=== PATIENT | male | born 1955 | race Caucasian/White ===

== ENCOUNTER 2022-01-27 13:38 | Inpatient (IN) ==
[2022-01-27] MEDS ORDERED: Ringers Solution, Lactated 1,000 ML IVC SCH (14:00)
[2022-01-27] MEDS ORDERED: cefOXitin 2,000 MG in Water for inj. (sterile) 10 ML IVP ONE (14:00)
[2022-01-27] MEDS ORDERED: Acetaminophen IV 1,000 MG/100 ML BAG IVPB ONE (14:46)
[2022-01-27] MEDS ORDERED: *HR* Labetalol 20 MG/4 ML SYRINGE IVP PRN (14:51)
[2022-01-27] MEDS ORDERED: Famotidine 20 MG/2 ML VIAL IVP ONE (14:51)
[2022-01-27] MEDS ORDERED: *HR* OxyCODONE Immed Rel 5 MG TABLET PO PRN (14:51)
[2022-01-27] MEDS ORDERED: Ketorolac 30 MG/ML VIAL IVP PRN (14:51)
[2022-01-27] MEDS ORDERED: CefOXitin 1,000 MG VIAL ONE (16:29)
[2022-01-27] MEDS ORDERED: Lidocaine -MPF 4% 5 ML AMPUL ONE (16:55)
[2022-01-27] MEDS ORDERED: Lidocaine -MPF 2% 5 ML VIAL ONE (16:57)
[2022-01-27] MEDS ORDERED: *HR* Propofol 200 MG/20 ML VIAL IVP ONE (16:57)
[2022-01-27] MEDS ORDERED: *HR* Rocuronium Bromide 50 MG/5 ML VIAL ONE ×2 (16:57→19:36)
[2022-01-27] MEDS ORDERED: *HR* FentaNYL (PF) 100 MCG/2 ML VIAL ONE ×2 (16:57→19:05)
[2022-01-27] MEDS ORDERED: *HR* Midazolam HCl 2 MG/2 ML VIAL ONE (16:57)
[2022-01-27] MEDS ORDERED: *HR* Succinylcholine 200 MG/10 ML VIAL IVP ONE (16:57)
[2022-01-27] MEDS ORDERED: Ondansetron 4 MG/2 ML VIAL ONE (16:57)
[2022-01-27] MEDS ORDERED: Oxymetazoline Nasal SPRAY BOTTLE 15ML NS ONE (19:02)
[2022-01-27] MEDS ORDERED: *HR* HYDROMORPHONE 2 MG/ML VIAL ONE (19:35)
[2022-01-27] MEDS ORDERED: Sugammadex Sodium 200 MG/2 ML VIAL IV ONE (19:37)
[2022-01-27] MEDS ORDERED: *HR* Labetalol 20 MG/4 ML SYRINGE IVP ONE (20:03)
[2022-01-27] MEDS: *HR* HYDROmorphone (PF) 1 MG/ML SYRINGE IVP PRN ×3 (22:39→23:09)
[2022-01-28] MEDS ORDERED: Naloxone 0.4 MG/ML INJ IVP PRN (00:07)
[2022-01-28] MEDS ORDERED: Ondansetron 4 MG/2 ML VIAL IVP PRN (00:07)
[2022-01-28] MEDS ORDERED: *HR* HYDROmorphone PCA *PREMADE* 20 MG/1MG/ML (20mL) PCA VIAL IVC PRN (00:07)
[2022-01-28] MEDS ORDERED: cefOXitin 1,000 MG in Water for inj. (sterile) 10 ML IVP SCH (00:07)
[2022-01-28] MEDS: 0.9 % Sodium Chloride 1,000 ML IVC SCH ×3 (00:50→16:27)
[2022-01-28] MEDS: Acetaminophen IV 1,000 MG/100 ML BAG IVPB SCH ×5 (00:57→23:08)
[2022-01-28] MEDS: Ketorolac 30 MG/ML VIAL IVP SCH ×2 (01:09→05:31)
[2022-01-28] MEDS: cefOXitin 1,000 MG in Water for inj. (sterile) 10 ML IVP SCH ×3 (02:48→19:20)
[2022-01-28 03:22] LABS: Basophils % 0.2 %; Hematocrit 37.8 % (37.5-50.1); Hemoglobin 12.8 g/dL (12.9-16.9); Immature Granulocytes % 0.2 % (0-4); Lymphocytes # 0.5 K/mcL (0.6-4.6); Lymphocytes % 3.1 %; Mean Corpuscular HGB Conc 33.9 g/dL (31.6-35.5); Mean Corpuscular Volume 97.4 fL (83.0-100.0); Mean Platelet Volume 9.8 fL (9.4-12.4); Monocytes # 1.3 K/mcL (0.0-1.3); Neutrophils # 14.3 K/mcL (1.6-8.9); Platelet Count 337 K/mcL (140-400); Red Blood Count 3.88 M/mcL (4.19-5.50); Red Cell Distribution Width 14.1 % (11.5-14.5); Segmented Neutrophils % 88.5 %; White Blood Count 16.2 K/mcL (4.3-11.1)
[2022-01-28 03:41] LABS: BUN/Creatinine Ratio 15 (6-26); Blood Urea Nitrogen 17 mg/dL (8-23); Calcium 8.6 mg/dL (8.6-10.3); Carbon Dioxide 27 mEq/L (23-29); Chloride 97 mEq/L (98-107); Glucose 340 mg/dL (70-105); Osmolality,Calculated 291 (280-300); Potassium 4.9 mEq/L (3.5-5.1); Sodium 133 mEq/L (136-145); eGFR For African Americans > 60 (> 60); eGFR For Non-African Americans > 60 (> 60)
[2022-01-28] MEDS ORDERED: *HR* Fondaparinux 2.5 MG/0.5 ML SYRINGE SQ SCH (06:00)
[2022-01-28] MEDS: Pantoprazole 40 MG VIAL IVP SCH (08:43)
[2022-01-28] MEDS ORDERED: Saliva Stimulant 44.3ml BOTTLE PO PRN (09:36)
[2022-01-28] MEDS ORDERED: Chloraseptic Spray 177 ML BOTTLE MM PRN (09:36)
[2022-01-28] MEDS ORDERED: *HR* Dextrose 50 % in Water (Syg) 50 ML SYRINGE IVP PRN (09:59)
[2022-01-28] MEDS ORDERED: Dextrose Gel 15 GM/37.5 ML TUBE PO PRN ×2 (09:59)
[2022-01-28] MEDS ORDERED: D5% in Water 1,000 ML IVC PRN (09:59)
[2022-01-28 11:59] LABS: Estimated Average Glucose 169 mg/dl; Hemoglobin A1C 7.5 %
[2022-01-28] MEDS ORDERED: Insulin LISPRO 300 UNITS/3 ML VIAL SUBQ SCH (12:00)
[2022-01-28] MEDS: Insulin LISPRO 300 UNITS/3 ML VIAL SUBQ SCH ×2 (12:21→17:46)
[2022-01-28] MEDS: *HR* Fondaparinux 2.5 MG/0.5 ML SYRINGE SQ SCH (15:54)
[2022-01-28] MEDS: Famotidine 20 MG/2 ML VIAL IVP SCH (17:28)
[2022-01-28] MEDS: traZODone 50 MG TABLET PO SCH (20:50)
[2022-01-29] MEDS: 0.9 % Sodium Chloride 1,000 ML IVC SCH ×4 (00:49→23:42)
[2022-01-29] MEDS: Insulin LISPRO 300 UNITS/3 ML VIAL SUBQ SCH ×5 (01:54→23:53)
[2022-01-29 02:19] LABS: Basophils % 0.1 %; Hematocrit 34.5 % (37.5-50.1); Hemoglobin 11.4 g/dL (12.9-16.9); Immature Granulocytes % 0.2 % (0-4); Lymphocytes # 1.7 K/mcL (0.6-4.6); Lymphocytes % 10.7 %; Mean Corpuscular Hemoglobin 32.5 pg (28.0-33.3); Mean Corpuscular Volume 98.3 fL (83.0-100.0); Mean Platelet Volume 9.7 fL (9.4-12.4); Monocytes # 1.5 K/mcL (0.0-1.3); Monocytes % 9.4 %; Neutrophils # 12.8 K/mcL (1.6-8.9); Platelet Count 293 K/mcL (140-400); Red Blood Count 3.51 M/mcL (4.19-5.50); Red Cell Distribution Width 13.7 % (11.5-14.5); Segmented Neutrophils % 79.6 %; White Blood Count 16.1 K/mcL (4.3-11.1)
[2022-01-29 02:37] LABS: BUN/Creatinine Ratio 25 (6-26); Blood Urea Nitrogen 23 mg/dL (8-23); Calcium 7.9 mg/dL (8.6-10.3); Carbon Dioxide 29 mEq/L (23-29); Chloride 98 mEq/L (98-107); Glucose 315 mg/dL (70-105); Osmolality,Calculated 290 (280-300); Phosphorous 3.3 mg/dL (2.7-4.5); Potassium 4.5 mEq/L (3.5-5.1); Sodium 132 mEq/L (136-145); eGFR For African Americans > 60 (> 60); eGFR For Non-African Americans > 60 (> 60)
[2022-01-29] MEDS: *HR* Fondaparinux 2.5 MG/0.5 ML SYRINGE SQ SCH (05:26)
[2022-01-29] MEDS: Acetaminophen IV 1,000 MG/100 ML BAG IVPB SCH ×4 (05:29→23:43)
[2022-01-29] MEDS: Famotidine 20 MG/2 ML VIAL IVP SCH ×2 (05:59→17:25)
[2022-01-29] MEDS ORDERED: *HR* Fondaparinux 2.5 MG/0.5 ML SYRINGE SQ SCH (06:00)
[2022-01-29] MEDS: Piperacillin/Tazobactam 3.375 GM in 0.9 % Sodium Chloride Mini Bag 100 ML IVPB SCH ×3 (08:16→23:42)
[2022-01-29] MEDS: Pantoprazole 40 MG VIAL IVP SCH (08:17)
[2022-01-29] MEDS ORDERED: hydroCHLOROthiazide 25 MG TABLET PO SCH (09:00)
[2022-01-29] MEDS: Insulin DETEMIR 100 UNIT/ML X5UNITS SUBQ SCH ×2 (12:19→21:07)
[2022-01-29] MEDS: Orphenadrine 60 MG/2 ML VIAL IVP PRN (12:28)
[2022-01-29] MEDS: traZODone 50 MG TABLET PO SCH (20:12)
[2022-01-30] MEDS: Orphenadrine 60 MG/2 ML VIAL IVP PRN (00:44)
[2022-01-30 05:12] LABS: Basophils % 0.3 %; Eosinophils # 0.1 K/mcL (0.0-0.6); Eosinophils % 0.7 %; Hematocrit 33.8 % (37.5-50.1); Hemoglobin 11.3 g/dL (12.9-16.9); Immature Granulocytes % 0.3 % (0-4); Lymphocytes % 23.2 %; Mean Corpuscular HGB Conc 33.4 g/dL (31.6-35.5); Mean Corpuscular Hemoglobin 32.9 pg (28.0-33.3); Mean Corpuscular Volume 98.5 fL (83.0-100.0); Mean Platelet Volume 10.1 fL (9.4-12.4); Monocytes # 1.6 K/mcL (0.0-1.3); Neutrophils # 8.3 K/mcL (1.6-8.9); Platelet Count 289 K/mcL (140-400); Red Blood Count 3.43 M/mcL (4.19-5.50); Segmented Neutrophils % 63.5 %; White Blood Count 13.1 K/mcL (4.3-11.1)
[2022-01-30 06:11] LABS: BUN/Creatinine Ratio 17 (6-26); Blood Urea Nitrogen 14 mg/dL (8-23); Calcium 7.9 mg/dL (8.6-10.3); Carbon Dioxide 27 mEq/L (23-29); Chloride 99 mEq/L (98-107); Glucose 162 mg/dL (70-105); Magnesium 1.9 mg/dL (1.6-2.6); Osmolality,Calculated 280 (280-300); Phosphorous 1.7 mg/dL (2.7-4.5); Sodium 133 mEq/L (136-145); eGFR For African Americans > 60 (> 60); eGFR For Non-African Americans > 60 (> 60)
[2022-01-30] MEDS: *HR* Fondaparinux 2.5 MG/0.5 ML SYRINGE SQ SCH (06:12)
[2022-01-30] MEDS: Acetaminophen IV 1,000 MG/100 ML BAG IVPB SCH ×3 (06:12→17:13)
[2022-01-30] MEDS: Insulin LISPRO 300 UNITS/3 ML VIAL SUBQ SCH ×3 (06:15→17:14)
[2022-01-30] MEDS ORDERED: Potassium Phosphate 44 MEQ in 0.9 % Sodium Chloride 250 ML IVPB ONE (06:55)
[2022-01-30] MEDS: Famotidine 20 MG/2 ML VIAL IVP SCH (06:58)
[2022-01-30] MEDS: 0.9 % Sodium Chloride 1,000 ML IVC SCH ×2 (07:53→16:21)
[2022-01-30] MEDS: Piperacillin/Tazobactam 3.375 GM in 0.9 % Sodium Chloride Mini Bag 100 ML IVPB SCH ×2 (07:53→16:20)
[2022-01-30] MEDS: Insulin DETEMIR 100 UNIT/ML X5UNITS SUBQ SCH ×2 (07:55→21:31)
[2022-01-30] MEDS: Pantoprazole 40 MG VIAL IVP SCH (07:56)
[2022-01-30] MEDS: Ondansetron 4 MG/2 ML VIAL IVP SCH ×4 (08:16→21:30)
[2022-01-30] MEDS ORDERED: *HR* LORazepam 2 MG/ML VIAL IVP ONE (08:27)
[2022-01-30] MEDS: Ipratropium/Albuterol Neb 3 ML IH SCH ×4 (09:03→20:40)
[2022-01-30] MEDS: Metoclopramide 20 MG in 0.9 % Sodium Chloride 50 ML IVPB SCH ×2 (10:12→16:37)
[2022-01-30] MEDS ORDERED: Ondansetron 4 MG/2 ML VIAL IVP SCH (12:00)
[2022-01-30] MEDS: Ketorolac 15 MG/ML VIAL IVP SCH ×2 (12:23→17:13)
[2022-01-30] MEDS: traZODone 50 MG TABLET PO SCH (21:30)
[2022-01-31] MEDS: Piperacillin/Tazobactam 3.375 GM in 0.9 % Sodium Chloride Mini Bag 100 ML IVPB SCH ×3 (00:20→16:58)
[2022-01-31] MEDS: Insulin LISPRO 300 UNITS/3 ML VIAL SUBQ SCH ×4 (00:20→17:17)
[2022-01-31] MEDS: Metoclopramide 20 MG in 0.9 % Sodium Chloride 50 ML IVPB SCH ×2 (00:20→08:58)
[2022-01-31] MEDS: Acetaminophen IV 1,000 MG/100 ML BAG IVPB SCH ×4 (00:20→16:59)
[2022-01-31] MEDS: Ondansetron 4 MG/2 ML VIAL IVP SCH ×3 (00:20→08:59)
[2022-01-31] MEDS: Ketorolac 15 MG/ML VIAL IVP SCH ×4 (00:20→16:59)
[2022-01-31] MEDS: 0.9 % Sodium Chloride 1,000 ML IVC SCH ×2 (01:06→09:01)
[2022-01-31] MEDS: *HR* Fondaparinux 2.5 MG/0.5 ML SYRINGE SQ SCH (05:34)
[2022-01-31 05:35] LABS: Basophils % 0.2 %; Eosinophils # 0.1 K/mcL (0.0-0.6); Eosinophils % 0.8 %; Hemoglobin 10.3 g/dL (12.9-16.9); Immature Granulocytes % 0.2 % (0-4); Lymphocytes # 2.3 K/mcL (0.6-4.6); Lymphocytes % 27.4 %; Mean Corpuscular HGB Conc 33.2 g/dL (31.6-35.5); Mean Corpuscular Hemoglobin 32.5 pg (28.0-33.3); Mean Corpuscular Volume 97.8 fL (83.0-100.0); Mean Platelet Volume 9.8 fL (9.4-12.4); Monocytes # 1.1 K/mcL (0.0-1.3); Monocytes % 12.6 %; Neutrophils # 4.9 K/mcL (1.6-8.9); Platelet Count 279 K/mcL (140-400); Red Blood Count 3.17 M/mcL (4.19-5.50); Red Cell Distribution Width 13.7 % (11.5-14.5); Segmented Neutrophils % 58.8 %; White Blood Count 8.4 K/mcL (4.3-11.1)
[2022-01-31 05:58] LABS: BUN/Creatinine Ratio 16 (6-26); Blood Urea Nitrogen 13 mg/dL (8-23); Calcium 7.6 mg/dL (8.6-10.3); Carbon Dioxide 26 mEq/L (23-29); Chloride 108 mEq/L (98-107); Glucose 112 mg/dL (70-105); Magnesium 1.9 mg/dL (1.6-2.6); Osmolality,Calculated 287 (280-300); Phosphorous 2.5 mg/dL (2.7-4.5); Potassium 3.6 mEq/L (3.5-5.1); Sodium 138 mEq/L (136-145); eGFR For African Americans > 60 (> 60); eGFR For Non-African Americans > 60 (> 60)
[2022-01-31] MEDS: Pantoprazole 40 MG VIAL IVP SCH (08:59)
[2022-01-31] MEDS: Insulin DETEMIR 100 UNIT/ML X5UNITS SUBQ SCH ×2 (08:59→20:54)
[2022-01-31] MEDS ORDERED: Potassium Phosphate 44 MEQ in 0.9 % Sodium Chloride 250 ML IVPB ONE (16:39)
[2022-01-31] MEDS: D5% in 0.45% NACL w KCl 20 MEQ/1,000 ML MLS IVC SCH (16:59)
[2022-01-31] MEDS: traZODone 50 MG TABLET PO SCH (20:54)
[2022-02-01] MEDS: Ketorolac 15 MG/ML VIAL IVP SCH ×4 (00:35→16:33)
[2022-02-01] MEDS: Piperacillin/Tazobactam 3.375 GM in 0.9 % Sodium Chloride Mini Bag 100 ML IVPB SCH ×3 (00:36→16:33)
[2022-02-01] MEDS: Insulin LISPRO 300 UNITS/3 ML VIAL SUBQ SCH ×4 (00:45→16:34)
[2022-02-01] MEDS: Acetaminophen IV 1,000 MG/100 ML BAG IVPB SCH ×4 (00:48→16:34)
[2022-02-01] MEDS: D5% in 0.45% NACL w KCl 20 MEQ/1,000 ML MLS IVC SCH ×2 (03:14→12:19)
[2022-02-01] MEDS: *HR* Fondaparinux 2.5 MG/0.5 ML SYRINGE SQ SCH (05:25)
[2022-02-01] MEDS: Pantoprazole 40 MG VIAL IVP SCH (07:50)
[2022-02-01] MEDS: Insulin DETEMIR 100 UNIT/ML X5UNITS SUBQ SCH ×2 (07:50→21:13)
[2022-02-01 15:01] LABS: Basophils % 0.3 %; Eosinophils # 0.1 K/mcL (0.0-0.6); Eosinophils % 1.1 %; Hematocrit 32.2 % (37.5-50.1); Hemoglobin 11.2 g/dL (12.9-16.9); Immature Granulocytes % 0.6 % (0-4); Lymphocytes # 2.4 K/mcL (0.6-4.6); Lymphocytes % 27.1 %; Mean Corpuscular HGB Conc 34.8 g/dL (31.6-35.5); Mean Corpuscular Hemoglobin 32.5 pg (28.0-33.3); Mean Corpuscular Volume 93.3 fL (83.0-100.0); Mean Platelet Volume 9.6 fL (9.4-12.4); Monocytes # 1.1 K/mcL (0.0-1.3); Monocytes % 12.6 %; Neutrophils # 5.3 K/mcL (1.6-8.9); Platelet Count 295 K/mcL (140-400); Red Blood Count 3.45 M/mcL (4.19-5.50); Segmented Neutrophils % 58.3 %
[2022-02-01 15:21] LABS: BUN/Creatinine Ratio 13 (6-26); Blood Urea Nitrogen 10 mg/dL (8-23); Calcium 8.1 mg/dL (8.6-10.3); Carbon Dioxide 24 mEq/L (23-29); Chloride 103 mEq/L (98-107); Glucose 177 mg/dL (70-105); Magnesium 1.9 mg/dL (1.6-2.6); Osmolality,Calculated 279 (280-300); Phosphorous 1.9 mg/dL (2.7-4.5); Potassium 3.7 mEq/L (3.5-5.1); Sodium 133 mEq/L (136-145); eGFR For African Americans > 60 (> 60); eGFR For Non-African Americans > 60 (> 60)
[2022-02-01] MEDS ORDERED: Ondansetron ODT 4 MG TAB.RAPDIS SL ONE (20:17)
[2022-02-01] MEDS: traZODone 50 MG TABLET PO SCH (21:07)
[2022-02-02] MEDS: Piperacillin/Tazobactam 3.375 GM in 0.9 % Sodium Chloride Mini Bag 100 ML IVPB SCH ×4 (00:24→23:30)
[2022-02-02] MEDS: Acetaminophen IV 1,000 MG/100 ML BAG IVPB SCH ×5 (00:31→23:35)
[2022-02-02] MEDS: D5% in 0.45% NACL w KCl 20 MEQ/1,000 ML MLS IVC SCH ×3 (00:33→21:37)
[2022-02-02] MEDS: Insulin LISPRO 300 UNITS/3 ML VIAL SUBQ SCH ×4 (00:33→18:53)
[2022-02-02] MEDS: Ketorolac 15 MG/ML VIAL IVP SCH ×5 (00:44→23:10)
[2022-02-02 05:45] LABS: Basophils % 0.1 %; Eosinophils % 0.4 %; Hematocrit 26.5 % (37.5-50.1); Immature Granulocytes % 0.3 % (0-4); Lymphocytes # 1.8 K/mcL (0.6-4.6); Lymphocytes % 18.5 %; Mean Corpuscular HGB Conc 33.6 g/dL (31.6-35.5); Mean Corpuscular Hemoglobin 32.1 pg (28.0-33.3); Mean Corpuscular Volume 95.7 fL (83.0-100.0); Mean Platelet Volume 10.3 fL (9.4-12.4); Monocytes # 1.1 K/mcL (0.0-1.3); Monocytes % 11.4 %; Neutrophils # 6.6 K/mcL (1.6-8.9); Platelet Count 263 K/mcL (140-400); Red Blood Count 2.77 M/mcL (4.19-5.50); Red Cell Distribution Width 13.1 % (11.5-14.5); Segmented Neutrophils % 69.3 %; White Blood Count 9.5 K/mcL (4.3-11.1)
[2022-02-02 05:50] LABS: Hemoglobin 8.9 g/dL (12.9-16.9)
[2022-02-02 06:16] LABS: BUN/Creatinine Ratio 17 (6-26); Blood Urea Nitrogen 14 mg/dL (8-23); Calcium 7.6 mg/dL (8.6-10.3); Carbon Dioxide 22 mEq/L (23-29); Chloride 103 mEq/L (98-107); Glucose 270 mg/dL (70-105); Magnesium 1.8 mg/dL (1.6-2.6); Osmolality,Calculated 286 (280-300); Phosphorous 2.9 mg/dL (2.7-4.5); Sodium 133 mEq/L (136-145); eGFR For African Americans > 60 (> 60); eGFR For Non-African Americans > 60 (> 60)
[2022-02-02] MEDS: *HR* Fondaparinux 2.5 MG/0.5 ML SYRINGE SQ SCH (06:27)
[2022-02-02 09:29] LABS: Hematocrit 26.1 % (37.5-50.1); Hemoglobin 8.9 g/dL (12.9-16.9)
[2022-02-02] MEDS: Insulin DETEMIR 100 UNIT/ML X5UNITS SUBQ SCH ×2 (09:58→20:51)
[2022-02-02] MEDS: Pantoprazole 40 MG VIAL IVP SCH (09:58)
[2022-02-02] MEDS ORDERED: Simethicone 80 MG TAB.CHEW PO PRN (12:38)
[2022-02-02] MEDS: Metoclopramide 20 MG in 0.9 % Sodium Chloride 50 ML IVPB SCH (18:14)
[2022-02-02] MEDS ORDERED: Ondansetron 4 MG/2 ML VIAL IVP ONE (21:43)
[2022-02-02] MEDS ORDERED: *HR* LORazepam 2 MG/ML VIAL IVP ONE (22:41)
[2022-02-02] MEDS: Baclofen 10 MG TABLET PO SCH (23:35)
[2022-02-03] MEDS: Metoclopramide 20 MG in 0.9 % Sodium Chloride 50 ML IVPB SCH ×3 (00:16→17:45)
[2022-02-03] MEDS: Insulin LISPRO 300 UNITS/3 ML VIAL SUBQ SCH ×5 (00:19→23:24)
[2022-02-03] MEDS: Acetaminophen IV 1,000 MG/100 ML BAG IVPB SCH ×4 (05:53→23:22)
[2022-02-03] MEDS: *HR* Fondaparinux 2.5 MG/0.5 ML SYRINGE SQ SCH (05:54)
[2022-02-03 06:35] LABS: Basophils % 0.3 %; Eosinophils # 0.1 K/mcL (0.0-0.6); Hematocrit 23.9 % (37.5-50.1); Immature Granulocytes % 0.3 % (0-4); Lymphocytes # 3.2 K/mcL (0.6-4.6); Lymphocytes % 35.7 %; Mean Corpuscular HGB Conc 33.5 g/dL (31.6-35.5); Mean Corpuscular Hemoglobin 32.3 pg (28.0-33.3); Mean Corpuscular Volume 96.4 fL (83.0-100.0); Mean Platelet Volume 10.2 fL (9.4-12.4); Monocytes # 1.4 K/mcL (0.0-1.3); Monocytes % 15.3 %; Neutrophils # 4.3 K/mcL (1.6-8.9); Platelet Count 254 K/mcL (140-400); Red Blood Count 2.48 M/mcL (4.19-5.50); Red Cell Distribution Width 13.8 % (11.5-14.5); Segmented Neutrophils % 47.4 %; White Blood Count 9.1 K/mcL (4.3-11.1)
[2022-02-03 06:52] LABS: BUN/Creatinine Ratio 15 (6-26); Blood Urea Nitrogen 13 mg/dL (8-23); Calcium 7.6 mg/dL (8.6-10.3); Carbon Dioxide 26 mEq/L (23-29); Chloride 105 mEq/L (98-107); Glucose 207 mg/dL (70-105); Osmolality,Calculated 288 (280-300); Phosphorous 2.7 mg/dL (2.7-4.5); Potassium 4.1 mEq/L (3.5-5.1); Sodium 136 mEq/L (136-145); eGFR For African Americans > 60 (> 60); eGFR For Non-African Americans > 60 (> 60)
[2022-02-03] MEDS: Ketorolac 15 MG/ML VIAL IVP SCH ×2 (08:32→13:01)
[2022-02-03] MEDS: Piperacillin/Tazobactam 3.375 GM in 0.9 % Sodium Chloride Mini Bag 100 ML IVPB SCH ×3 (08:36→23:22)
[2022-02-03] MEDS: Pantoprazole 40 MG VIAL IVP SCH (08:36)
[2022-02-03] MEDS: Baclofen 10 MG TABLET PO SCH ×3 (08:37→23:24)
[2022-02-03] MEDS: Insulin DETEMIR 100 UNIT/ML X5UNITS SUBQ SCH ×2 (08:40→21:43)
[2022-02-03] MEDS: D5% in 0.45% NACL w KCl 20 MEQ/1,000 ML MLS IVC SCH ×2 (08:43→18:41)
[2022-02-04] MEDS: D5% in 0.45% NACL w KCl 20 MEQ/1,000 ML MLS IVC SCH (04:19)
[2022-02-04] MEDS: Insulin LISPRO 300 UNITS/3 ML VIAL SUBQ SCH ×2 (05:20→12:35)
[2022-02-04] MEDS: Acetaminophen IV 1,000 MG/100 ML BAG IVPB SCH (05:20)
[2022-02-04 07:01] LABS: Basophils % 0.3 %; Eosinophils # 0.1 K/mcL (0.0-0.6); Eosinophils % 1.5 %; Hematocrit 26.9 % (37.5-50.1); Hemoglobin 9.3 g/dL (12.9-16.9); Immature Granulocytes % 0.3 % (0-4); Lymphocytes # 3.2 K/mcL (0.6-4.6); Lymphocytes % 36.4 %; Mean Corpuscular HGB Conc 34.6 g/dL (31.6-35.5); Mean Corpuscular Hemoglobin 33.2 pg (28.0-33.3); Mean Corpuscular Volume 96.1 fL (83.0-100.0); Mean Platelet Volume 10.1 fL (9.4-12.4); Monocytes # 1.2 K/mcL (0.0-1.3); Monocytes % 13.5 %; Neutrophils # 4.2 K/mcL (1.6-8.9); Platelet Count 325 K/mcL (140-400); Red Cell Distribution Width 14.2 % (11.5-14.5); White Blood Count 8.7 K/mcL (4.3-11.1)
[2022-02-04 07:52] VITALS: O2SAT 97
[2022-02-04 07:53] LABS: % Iron Saturation 16 % (20-55); Iron 36 mcg/dL (65-175); Transferrin 164 mg/dL (203-362)
[2022-02-04] MEDS: Pantoprazole 40 MG VIAL IVP SCH (08:17)
[2022-02-04] MEDS: Insulin DETEMIR 100 UNIT/ML X5UNITS SUBQ SCH (08:17)
[2022-02-04] MEDS: Baclofen 10 MG TABLET PO SCH (08:17)
[2022-02-04] MEDS: Piperacillin/Tazobactam 3.375 GM in 0.9 % Sodium Chloride Mini Bag 100 ML IVPB SCH (08:18)
[2022-02-04] MEDS ORDERED: Gabapentin 400 MG CAPSULE PO SCH (09:00)
[2022-02-04] MEDS ORDERED: DilTIAZem CD (24hr) 300 MG CAP.ER.24H PO SCH (09:00)
[2022-02-04] MEDS ORDERED: Ibuprofen 800 MG TABLET PO PRN (10:34)
[2022-02-04] MEDS ORDERED: *HR* OxyCODONE Immed Rel 5 MG TABLET PO PRN (10:34)
[2022-02-04 10:43] LABS: Folate 19.6 ng/mL (3.0-16.0)
[2022-02-04] MEDS ORDERED: Iron Sucrose Complex 400 MG in 0.9 % Sodium Chloride 250 ML IVPB ONE (11:03)
[2022-02-04] MEDS ORDERED: polyethylene glycoL 3350 17 GM POWD.PACK PO SCH (11:15)
[2022-02-04 11:29] VITALS: PULSE 70; TEMP 97.8
[2022-02-04 11:30] VITALS: BP 152/73
== END 2022-02-04 13:50 | disposition home or self-care (01) | DRG 327 ==
LOC: SAMDAY 13:38 → SUATTDRO 15:49 → 3ANU 01-28 00:03
PROVIDERS: ADMIT Surgery; ATTEND Internal Medicine

== ENCOUNTER 2022-02-10 13:05 | Inpatient (IN) ==
[2022-02-10] MEDS ORDERED: 0.9 % Sodium Chloride 1,000 ML IVC ONE (13:23)
[2022-02-10] MEDS ORDERED: Isovue-370 500 ML BOTTLE IVP ONE (13:24)
[2022-02-10] MEDS ORDERED: Pantoprazole 80 MG in 0.9 % Sodium Chloride 50 ML IVPB ONE (13:32)
[2022-02-10] MEDS: Pantoprazole 40 MG in 0.9 % Sodium Chloride Mini Bag 100 ML IVC SCH ×3 (14:02→23:38)
[2022-02-10 14:12] LABS: Basophils % 0.1 %; Eosinophils % 0.1 %; Hematocrit 32.8 % (37.5-50.1); Hemoglobin 10.8 g/dL (12.9-16.9); Immature Granulocytes % 0.2 % (0-4); Lymphocytes % 8.1 %; Mean Corpuscular HGB Conc 32.9 g/dL (31.6-35.5); Mean Corpuscular Hemoglobin 32.3 pg (28.0-33.3); Mean Corpuscular Volume 98.2 fL (83.0-100.0); Mean Platelet Volume 9.7 fL (9.4-12.4); Monocytes # 1.5 K/mcL (0.0-1.3); Monocytes % 11.9 %; Neutrophils # 10.1 K/mcL (1.6-8.9); Platelet Count 615 K/mcL (140-400); Red Blood Count 3.34 M/mcL (4.19-5.50); Red Cell Distribution Width 14.4 % (11.5-14.5); Segmented Neutrophils % 79.6 %; White Blood Count 12.7 K/mcL (4.3-11.1)
[2022-02-10 14:22] LABS: INR 1.4; Prothrombin Time 15.4 Seconds (9.4-12.1)
[2022-02-10 14:24] LABS: Activated Partial Thrombo Time 28.4 Seconds (26.0-36.0)
[2022-02-10 14:29] LABS: Alanine Aminotransferase 18 Units/L (7-52); Albumin 3.8 g/dL (3.5-5.7); Alkaline Phosphatase 74 Units/L (34-104); Aspartate Amino Transferase 17 Units/L (13-39); BUN/Creatinine Ratio 16 (6-26); Bilirubin,Total 0.8 mg/dL (0.3-1.0); Blood Urea Nitrogen 35 mg/dL (8-23); Calcium 9.3 mg/dL (8.6-10.3); Carbon Dioxide 23 mEq/L (23-29); Chloride 98 mEq/L (98-107); Globulin 3.9 g/dL (2.4-3.5); Glucose 140 mg/dL (70-105); Lipase 3 Units/L (11-82); Magnesium 2.5 mg/dL (1.6-2.6); Osmolality,Calculated 286 (280-300); Potassium 3.1 mEq/L (3.5-5.1); Sodium 133 mEq/L (136-145); Total Protein 7.7 g/dL (6.4-8.9); Troponin I < 0.03 ng/mL (< 0.04); eGFR For African Americans 36 (> 60); eGFR For Non-African Americans 30 (> 60)
[2022-02-10] MEDS ORDERED: Naloxone 0.4 MG/ML INJ IVP PRN (15:57)
[2022-02-10] MEDS ORDERED: D5% in Water 1,000 ML IVC PRN (16:00)
[2022-02-10] MEDS ORDERED: *HR* Dextrose 50 % in Water (Syg) 50 ML SYRINGE IVP PRN (16:00)
[2022-02-10] MEDS ORDERED: Dextrose 4 GM Chewable Tablets PO PRN ×2 (16:00)
[2022-02-10] MEDS ORDERED: Ringers Solution, Lactated 1,000 ML IVC SCH (16:00)
[2022-02-10] MEDS ORDERED: *HR* HYDROmorphone 2 MG/ML SYRINGE IVP ONE (16:44)
[2022-02-10] MEDS: Ringers Solution, Lactated 1,000 ML IVC SCH ×2 (18:47→23:41)
[2022-02-10] MEDS: Insulin LISPRO 300 UNITS/3 ML VIAL SUBQ SCH (19:46)
[2022-02-10] MEDS ORDERED: Pantoprazole 40 MG VIAL ONE (19:53)
[2022-02-10 19:58] LABS: Hematocrit 27.6 % (37.5-50.1)
[2022-02-10 20:03] LABS: Hemoglobin 9.2 g/dL (12.9-16.9)
[2022-02-11] MEDS: Insulin LISPRO 300 UNITS/3 ML VIAL SUBQ SCH ×3 (00:46→20:23)
[2022-02-11] MEDS: Pantoprazole 40 MG in 0.9 % Sodium Chloride Mini Bag 100 ML IVC SCH ×2 (04:51→10:15)
[2022-02-11 06:11] LABS: BUN/Creatinine Ratio 23 (6-26); Blood Urea Nitrogen 30 mg/dL (8-23); Calcium 8.5 mg/dL (8.6-10.3); Carbon Dioxide 22 mEq/L (23-29); Chloride 100 mEq/L (98-107); Glucose 220 mg/dL (70-105); Magnesium 2.3 mg/dL (1.6-2.6); Osmolality,Calculated 289 (280-300); Phosphorous 3.9 mg/dL (2.7-4.5); Potassium 3.8 mEq/L (3.5-5.1); Sodium 133 mEq/L (136-145); eGFR For African Americans > 60 (> 60); eGFR For Non-African Americans 54 (> 60)
[2022-02-11 09:23] LABS: Basophils % 0.4 %; Eosinophils % 0.3 %; Hematocrit 29.4 % (37.5-50.1); Hemoglobin 9.8 g/dL (12.9-16.9); Immature Granulocytes % 0.3 % (0-4); Lymphocytes % 19.6 %; Mean Corpuscular HGB Conc 33.3 g/dL (31.6-35.5); Mean Corpuscular Hemoglobin 31.4 pg (28.0-33.3); Mean Corpuscular Volume 94.2 fL (83.0-100.0); Mean Platelet Volume 9.2 fL (9.4-12.4); Monocytes # 1.2 K/mcL (0.0-1.3); Monocytes % 12.1 %; Neutrophils # 6.8 K/mcL (1.6-8.9); Platelet Count 660 K/mcL (140-400); Red Blood Count 3.12 M/mcL (4.19-5.50); Red Cell Distribution Width 14.3 % (11.5-14.5); Segmented Neutrophils % 67.3 %; White Blood Count 10.2 K/mcL (4.3-11.1)
[2022-02-11] MEDS ORDERED: Prochlorperazine 10 MG/2 ML VIAL IVP PRN (10:13)
[2022-02-11] MEDS ORDERED: Scopolamine Patch 1.5 MG PATCH.TD72 TD ONE (10:13)
[2022-02-11] MEDS ORDERED: Chloraseptic Spray 177 ML BOTTLE MM PRN (10:14)
[2022-02-11] MEDS ORDERED: Menthol 1 EACH LOZENGE PO PRN (10:56)
[2022-02-11] MEDS ORDERED: Lidocaine 4% CREAM (LMX) 5 GM TP PRN (10:56)
[2022-02-11] MEDS: Saliva Stimulant 44.3ml BOTTLE PO PRN (12:09)
[2022-02-11] MEDS: Ondansetron 4 MG/2 ML VIAL IVP PRN (16:14)
[2022-02-11] MEDS ORDERED: Metoclopramide 10 MG/2 ML VIAL IVP PRN (19:27)
[2022-02-11] MEDS: Ringers Solution, Lactated 2,000 ML IVC SCH (20:24)
[2022-02-12] MEDS: Insulin LISPRO 300 UNITS/3 ML VIAL SUBQ SCH ×5 (01:04→17:59)
[2022-02-12 05:45] LABS: Basophils % 0.4 %; Eosinophils % 0.3 %; Hematocrit 30.2 % (37.5-50.1); Hemoglobin 10.3 g/dL (12.9-16.9); Immature Granulocytes % 0.4 % (0-4); Lymphocytes # 1.9 K/mcL (0.6-4.6); Lymphocytes % 26.4 %; Mean Corpuscular HGB Conc 34.1 g/dL (31.6-35.5); Mean Corpuscular Hemoglobin 32.3 pg (28.0-33.3); Mean Corpuscular Volume 94.7 fL (83.0-100.0); Mean Platelet Volume 9.2 fL (9.4-12.4); Monocytes # 1.5 K/mcL (0.0-1.3); Monocytes % 20.7 %; Neutrophils # 3.7 K/mcL (1.6-8.9); Platelet Count 694 K/mcL (140-400); Red Blood Count 3.19 M/mcL (4.19-5.50); Red Cell Distribution Width 14.3 % (11.5-14.5); Segmented Neutrophils % 51.8 %; White Blood Count 7.1 K/mcL (4.3-11.1)
[2022-02-12 06:04] LABS: Platelet Estimate Marked Increase (Normal); Poikilocytosis 1+ (Not Present); Target Cells 1+ (Not Present)
[2022-02-12 06:05] LABS: BUN/Creatinine Ratio 21 (6-26); Blood Urea Nitrogen 19 mg/dL (8-23); Calcium 8.5 mg/dL (8.6-10.3); Carbon Dioxide 30 mEq/L (23-29); Chloride 101 mEq/L (98-107); Glucose 186 mg/dL (70-105); Magnesium 2.2 mg/dL (1.6-2.6); Osmolality,Calculated 295 (280-300); Phosphorous 2.1 mg/dL (2.7-4.5); Potassium 3.3 mEq/L (3.5-5.1); Sodium 139 mEq/L (136-145); eGFR For African Americans > 60 (> 60); eGFR For Non-African Americans > 60 (> 60)
[2022-02-12] MEDS ORDERED: Potassium Phosphate 44 MEQ in 0.9 % Sodium Chloride 250 ML IVPB ONE (07:48)
[2022-02-12] MEDS: Pantoprazole 40 MG VIAL IVP SCH (08:26)
[2022-02-12] MEDS: Ringers Solution, Lactated 2,000 ML IVC SCH (15:01)
[2022-02-12] MEDS: Ondansetron 4 MG/2 ML VIAL IVP PRN (22:43)
[2022-02-13] MEDS: Insulin LISPRO 300 UNITS/3 ML VIAL SUBQ SCH ×3 (00:36→12:44)
[2022-02-13 02:34] LABS: Hematocrit 29.5 % (37.5-50.1)
[2022-02-13 02:55] LABS: BUN/Creatinine Ratio 20 (6-26); Blood Urea Nitrogen 16 mg/dL (8-23); Calcium 8.5 mg/dL (8.6-10.3); Carbon Dioxide 29 mEq/L (23-29); Chloride 100 mEq/L (98-107); Glucose 267 mg/dL (70-105); Magnesium 2.2 mg/dL (1.6-2.6); Osmolality,Calculated 293 (280-300); Phosphorous 2.1 mg/dL (2.7-4.5); Potassium 3.5 mEq/L (3.5-5.1); Sodium 136 mEq/L (136-145); eGFR For African Americans > 60 (> 60); eGFR For Non-African Americans > 60 (> 60)
[2022-02-13] MEDS: Ondansetron 4 MG/2 ML VIAL IVP PRN (07:13)
[2022-02-13] MEDS ORDERED: Isovue-370 500 ML BOTTLE IVP ONE (08:20)
[2022-02-13] MEDS: Saliva Stimulant 44.3ml BOTTLE PO PRN (08:41)
[2022-02-13] MEDS: Pantoprazole 40 MG VIAL IVP SCH (08:41)
[2022-02-13 09:13] LABS: Basophils % 0.4 %; Eosinophils % 0.4 %; Hematocrit 28.3 % (37.5-50.1); Hemoglobin 9.7 g/dL (12.9-16.9); Immature Granulocytes % 0.3 % (0-4); Lymphocytes # 1.2 K/mcL (0.6-4.6); Lymphocytes % 13.3 %; Mean Corpuscular HGB Conc 34.3 g/dL (31.6-35.5); Mean Corpuscular Hemoglobin 31.7 pg (28.0-33.3); Mean Corpuscular Volume 92.5 fL (83.0-100.0); Mean Platelet Volume 9.1 fL (9.4-12.4); Monocytes # 1.3 K/mcL (0.0-1.3); Monocytes % 14.8 %; Neutrophils # 6.4 K/mcL (1.6-8.9); Platelet Count 624 K/mcL (140-400); Red Blood Count 3.06 M/mcL (4.19-5.50); Red Cell Distribution Width 13.8 % (11.5-14.5); Segmented Neutrophils % 70.8 %; White Blood Count 9.1 K/mcL (4.3-11.1)
[2022-02-13] MEDS ORDERED: Ringers Solution, Lactated 1,000 ML IVC SCH (11:30)
[2022-02-13] MEDS ORDERED: Fluconazole 400 MG/200 ML 400 MG/200 ML BAG IVPB ONE (11:41)
[2022-02-13 14:21] LABS: Alanine Aminotransferase 15 Units/L (7-52); Albumin 2.9 g/dL (3.5-5.7); Albumin/Globulin Ratio 0.9 (1.1-2.2); Alkaline Phosphatase 58 Units/L (34-104); Aspartate Amino Transferase 14 Units/L (13-39); Bilirubin,Direct 0.2 mg/dL (0.0-0.2); Bilirubin,Indirect 0.5 mg/dL (0.0-1.0); Bilirubin,Total 0.7 mg/dL (0.3-1.0); Globulin 3.4 g/dL (2.4-3.5); Total Protein 6.3 g/dL (6.4-8.9)
[2022-02-13] MEDS ORDERED: *HR* Succinylcholine 200 MG/10 ML VIAL IVP ONE (15:16)
[2022-02-13] MEDS ORDERED: *HR* Midazolam HCl 2 MG/2 ML VIAL ONE (15:16)
[2022-02-13] MEDS ORDERED: Lidocaine -MPF 2% 5 ML VIAL ONE ×3 (15:16→17:30)
[2022-02-13] MEDS ORDERED: *HR* FentaNYL (PF) 100 MCG/2 ML VIAL ONE ×2 (15:16→17:21)
[2022-02-13] MEDS ORDERED: EPHEDrine 50 MG/ML VIAL ONE (15:16)
[2022-02-13] MEDS ORDERED: *HR* Phenylephrine 10 MG/ML VIAL ONE (15:16)
[2022-02-13] MEDS ORDERED: *HR* Propofol 200 MG/20 ML VIAL IVP ONE (15:16)
[2022-02-13] MEDS ORDERED: *HR* Rocuronium Bromide 50 MG/5 ML VIAL ONE ×2 (15:16→18:02)
[2022-02-13] MEDS ORDERED: Lidocaine HCL 4 ML Topical Solution (Laryng-O-Jet Kit Sterile Pak) TP ONE (15:17)
[2022-02-13] MEDS: Piperacillin/Tazobactam 3.375 GM in 0.9 % Sodium Chloride Mini Bag 100 ML IVPB SCH (15:20)
[2022-02-13] MEDS ORDERED: Albumin Human 5% 12.5 GM/250 ML IV.SOLN ONE (15:22)
[2022-02-13] MEDS ORDERED: *HR* Vasopressin 20 UNIT/ML VIAL ONE (15:23)
[2022-02-13] MEDS ORDERED: Heparin 1,000 UNITS/500 mL 500 ML ONE (15:33)
[2022-02-13] MEDS ORDERED: D10% in Water 500 ML IVC PRN (16:20)
[2022-02-13] MEDS ORDERED: *HR* FentaNYL (PF) 100 MCG/2 ML VIAL IVP PRN (16:33)
[2022-02-13] MEDS ORDERED: Albuterol 2.5 MG/3 ML NEBULIZER IH PRN (16:33)
[2022-02-13] MEDS ORDERED: Naloxone 0.4 MG/ML INJ IVP PRN ×2 (16:33→21:41)
[2022-02-13] MEDS ORDERED: Nitroglycerin 0.4 MG TAB.SUBL SL PRN ×2 (16:33→21:33)
[2022-02-13] MEDS ORDERED: Ipratropium Neb 0.5 MG NEBULIZER IH PRN (16:33)
[2022-02-13] MEDS ORDERED: Clinimix E 5%-20% SOLUTION 2,000 ML, Amino Acids 10% 0 ML with MVI, adult with vitami... IVC SCH (17:00)
[2022-02-13] MEDS ORDERED: Clinimix E 5%-15% SOLUTION 2,000 ML with MVI, adult with vitamin K 10 ML IVC SCH ×2 (17:00→21:33)
[2022-02-13] MEDS ORDERED: Ketamine HCL *QUVA* 50mg (1mL) SYRINGE ONE (17:32)
[2022-02-13] MEDS ORDERED: Ondansetron 4 MG/2 ML VIAL ONE (17:38)
[2022-02-13] MEDS ORDERED: *HR* HYDROMORPHONE 2 MG/ML VIAL ONE (19:35)
[2022-02-13] MEDS: *HR* FentaNYL (PF) 100 MCG/2 ML VIAL IVP PRN ×2 (20:02→20:12)
[2022-02-13] MEDS ORDERED: Acetaminophen IV 1,000 MG/100 ML BAG IVPB ONE ×2 (20:31→20:33)
[2022-02-13] MEDS ORDERED: Ketorolac 30 MG/ML VIAL IVP ONE (20:45)
[2022-02-13] MEDS ORDERED: *HR* HYDROmorphone PCA *PREMADE* 20 MG/1MG/ML (20mL) PCA VIAL IVC PRN (21:33)
[2022-02-13] MEDS ORDERED: Lidocaine 4% CREAM (LMX) 5 GM TP PRN (21:33)
[2022-02-13] MEDS ORDERED: D5% in Water 1,000 ML IVC PRN (21:33)
[2022-02-13] MEDS ORDERED: Dextrose 4 GM Chewable Tablets PO PRN ×2 (21:33)
[2022-02-13] MEDS ORDERED: Metoclopramide 10 MG/2 ML VIAL IVP PRN (21:33)
[2022-02-13] MEDS ORDERED: Menthol 1 EACH LOZENGE PO PRN (21:33)
[2022-02-13] MEDS ORDERED: Ondansetron 4 MG/2 ML VIAL IVP PRN (21:33)
[2022-02-13] MEDS: 0.9 % Sodium Chloride 1,000 ML IVC SCH (22:13)
[2022-02-14] MEDS: Piperacillin/Tazobactam 3.375 GM in 0.9 % Sodium Chloride Mini Bag 100 ML IVPB SCH ×4 (00:40→22:34)
[2022-02-14] MEDS: Insulin LISPRO 300 UNITS/3 ML VIAL SUBQ SCH ×5 (00:40→23:57)
[2022-02-14 08:06] LABS: Hematocrit 26.6 % (37.5-50.1); Mean Corpuscular HGB Conc 33.8 g/dL (31.6-35.5); Mean Corpuscular Hemoglobin 32.1 pg (28.0-33.3); Mean Platelet Volume 9.3 fL (9.4-12.4); Platelet Count 605 K/mcL (140-400); White Blood Count 12.9 K/mcL (4.3-11.1)
[2022-02-14 08:25] LABS: BUN/Creatinine Ratio 22 (6-26); Blood Urea Nitrogen 20 mg/dL (8-23); Calcium 7.9 mg/dL (8.6-10.3); Carbon Dioxide 27 mEq/L (23-29); Chloride 103 mEq/L (98-107); Glucose 266 mg/dL (70-105); Osmolality,Calculated 292 (280-300); Sodium 135 mEq/L (136-145); eGFR For African Americans > 60 (> 60); eGFR For Non-African Americans > 60 (> 60)
[2022-02-14 08:26] LABS: Phosphorous 3.6 mg/dL (2.7-4.5)
[2022-02-14 08:41] LABS: Lymphocytes # 0.5 K/mcL (0.6-4.6); Monocytes # 0.5 K/mcL (0.0-1.3); Neutrophils # 11.9 K/mcL (1.6-8.9)
[2022-02-14 08:42] LABS: Platelet Estimate Increased (Normal); Toxic Granulation Present (Not Present)
[2022-02-14 08:57] LABS: Triglycerides 86 mg/dL (< 150)
[2022-02-14] MEDS ORDERED: Fluconazole 200 MG/100 ML 200 MG/100 ML BAG IVPB SCH (09:00)
[2022-02-14] MEDS: Fluconazole 200 MG/100 ML 200 MG/100 ML BAG IVPB SCH (10:28)
[2022-02-14] MEDS: Pantoprazole 40 MG VIAL IVP SCH (10:36)
[2022-02-14] MEDS: 0.9 % Sodium Chloride 1,000 ML IVC SCH (10:50)
[2022-02-14] MEDS ORDERED: Clinimix E 5%-15% SOLUTION 2,000 ML IVC SCH (17:00)
[2022-02-14] MEDS: Chloraseptic Spray 177 ML BOTTLE MM PRN (17:33)
[2022-02-14] MEDS: Saliva Stimulant 44.3ml BOTTLE PO PRN (17:52)
[2022-02-14] MEDS: Insulin DETEMIR 100 UNIT/ML X5UNITS SUBQ SCH (20:16)
[2022-02-14] MEDS: Acetaminophen IV 1,000 MG/100 ML BAG IVPB PRN (22:51)
[2022-02-15] MEDS: 0.9 % Sodium Chloride 1,000 ML IVC SCH ×2 (01:20→18:20)
[2022-02-15] MEDS: Insulin LISPRO 300 UNITS/3 ML VIAL SUBQ SCH ×7 (04:37→23:08)
[2022-02-15 04:44] LABS: Basophils % 0.2 %; Hematocrit 25.6 % (37.5-50.1); Hemoglobin 8.4 g/dL (12.9-16.9); Lymphocytes # 1.8 K/mcL (0.6-4.6); Lymphocytes % 13.6 %; Mean Corpuscular HGB Conc 32.8 g/dL (31.6-35.5); Mean Corpuscular Hemoglobin 31.6 pg (28.0-33.3); Mean Corpuscular Volume 96.2 fL (83.0-100.0); Mean Platelet Volume 9.6 fL (9.4-12.4); Monocytes # 1.1 K/mcL (0.0-1.3); Neutrophils # 10.2 K/mcL (1.6-8.9); Nucleated Red Blood Cells 0.2 /100 WBC (0); Platelet Count 493 K/mcL (140-400); Red Blood Count 2.66 M/mcL (4.19-5.50); Red Cell Distribution Width 14.6 % (11.5-14.5); Segmented Neutrophils % 77.2 %; White Blood Count 13.2 K/mcL (4.3-11.1)
[2022-02-15 04:52] LABS: Alanine Aminotransferase 11 Units/L (7-52); Albumin 2.2 g/dL (3.5-5.7); Albumin/Globulin Ratio 0.8 (1.1-2.2); Alkaline Phosphatase 46 Units/L (34-104); Aspartate Amino Transferase 11 Units/L (13-39); BUN/Creatinine Ratio 20 (6-26); Bilirubin,Total 0.4 mg/dL (0.3-1.0); Blood Urea Nitrogen 16 mg/dL (8-23); Calcium 7.7 mg/dL (8.6-10.3); Carbon Dioxide 28 mEq/L (23-29); Chloride 105 mEq/L (98-107); Globulin 2.9 g/dL (2.4-3.5); Glucose 307 mg/dL (70-105); Magnesium 2.2 mg/dL (1.6-2.6); Osmolality,Calculated 295 (280-300); Phosphorous 1.9 mg/dL (2.7-4.5); Potassium 3.8 mEq/L (3.5-5.1); Sodium 136 mEq/L (136-145); Total Protein 5.1 g/dL (6.4-8.9); eGFR For African Americans > 60 (> 60); eGFR For Non-African Americans > 60 (> 60)
[2022-02-15] MEDS: Piperacillin/Tazobactam 3.375 GM in 0.9 % Sodium Chloride Mini Bag 100 ML IVPB SCH ×4 (08:14→22:49)
[2022-02-15] MEDS: Fluconazole 200 MG/100 ML 200 MG/100 ML BAG IVPB SCH (08:15)
[2022-02-15] MEDS: Pantoprazole 40 MG VIAL IVP SCH (08:15)
[2022-02-15] MEDS: Insulin DETEMIR 100 UNIT/ML X5UNITS SUBQ SCH (08:15)
[2022-02-15] MEDS ORDERED: Potassium Phosphate 44 MEQ in 0.9 % Sodium Chloride 250 ML IVPB ONE (13:13)
[2022-02-15] MEDS ORDERED: *HR* Metoprolol 5 MG/5 ML VIAL IVP PRN (15:58)
[2022-02-15] MEDS ORDERED: Clinimix E 5%-15% SOLUTION 2,000 ML IVC SCH (17:00)
[2022-02-15] MEDS: Chloraseptic Spray 177 ML BOTTLE MM PRN (18:20)
[2022-02-15] MEDS ORDERED: Insulin DETEMIR 100 UNIT/ML X5UNITS SUBQ SCH (21:00)
[2022-02-16] MEDS: 0.9 % Sodium Chloride 1,000 ML IVC SCH (04:43)
[2022-02-16] MEDS: Insulin LISPRO 300 UNITS/3 ML VIAL SUBQ SCH ×5 (04:54→21:45)
[2022-02-16 05:01] LABS: Basophils # 0.1 K/mcL (0.0-0.2); Basophils % 0.6 %; Eosinophils % 0.2 %; Hematocrit 26.1 % (37.5-50.1); Hemoglobin 8.7 g/dL (12.9-16.9); Immature Granulocytes % 1.7 % (0-4); Lymphocytes # 1.8 K/mcL (0.6-4.6); Lymphocytes % 14.9 %; Mean Corpuscular HGB Conc 33.3 g/dL (31.6-35.5); Mean Corpuscular Hemoglobin 31.9 pg (28.0-33.3); Mean Corpuscular Volume 95.6 fL (83.0-100.0); Mean Platelet Volume 10.4 fL (9.4-12.4); Monocytes # 1.1 K/mcL (0.0-1.3); Monocytes % 8.9 %; Neutrophils # 8.7 K/mcL (1.6-8.9); Nucleated Red Blood Cells 0.9 /100 WBC (0); Platelet Count 464 K/mcL (140-400); Red Blood Count 2.73 M/mcL (4.19-5.50); Red Cell Distribution Width 14.6 % (11.5-14.5); Segmented Neutrophils % 73.7 %; White Blood Count 11.8 K/mcL (4.3-11.1)
[2022-02-16 05:19] LABS: Alanine Aminotransferase 10 Units/L (7-52); Albumin 2.2 g/dL (3.5-5.7); Albumin/Globulin Ratio 0.7 (1.1-2.2); Alkaline Phosphatase 50 Units/L (34-104); Aspartate Amino Transferase 12 Units/L (13-39); BUN/Creatinine Ratio 17 (6-26); Bilirubin,Total 0.4 mg/dL (0.3-1.0); Blood Urea Nitrogen 13 mg/dL (8-23); Calcium 7.5 mg/dL (8.6-10.3); Carbon Dioxide 27 mEq/L (23-29); Chloride 101 mEq/L (98-107); Globulin 3.1 g/dL (2.4-3.5); Glucose 373 mg/dL (70-105); Magnesium 1.8 mg/dL (1.6-2.6); Osmolality,Calculated 291 (280-300); Potassium 3.8 mEq/L (3.5-5.1); Sodium 133 mEq/L (136-145); Total Protein 5.3 g/dL (6.4-8.9); eGFR For African Americans > 60 (> 60); eGFR For Non-African Americans > 60 (> 60)
[2022-02-16] MEDS ORDERED: Calcium Gluconate 1gm/50mL 1 GM/50 ML BAG IVPB ONE (05:37)
[2022-02-16] MEDS: Piperacillin/Tazobactam 3.375 GM in 0.9 % Sodium Chloride Mini Bag 100 ML IVPB SCH ×2 (08:15→13:58)
[2022-02-16] MEDS ORDERED: Insulin DETEMIR 100 UNIT/ML X5UNITS SUBQ SCH (09:00)
[2022-02-16] MEDS: Pantoprazole 40 MG VIAL IVP SCH (09:06)
[2022-02-16] MEDS ORDERED: Prochlorperazine 10 MG/2 ML VIAL IVP PRN (09:07)
[2022-02-16] MEDS: Fluconazole 200 MG/100 ML 200 MG/100 ML BAG IVPB SCH (09:07)
[2022-02-16] MEDS ORDERED: D10% in Water 500 ML IVC PRN (11:56)
[2022-02-16] MEDS ORDERED: Clinimix E 5%-15% SOLUTION 2,000 ML with MVI, adult with vitamin K 10 ML IVC SCH (17:00)
[2022-02-16] MEDS: Insulin DETEMIR 100 UNIT/ML X5UNITS SUBQ SCH (21:45)
[2022-02-17] MEDS: Insulin LISPRO 300 UNITS/3 ML VIAL SUBQ SCH ×6 (00:11→20:14)
[2022-02-17] MEDS: 0.9 % Sodium Chloride 1,000 ML IVC SCH (00:18)
[2022-02-17] MEDS: Piperacillin/Tazobactam 3.375 GM in 0.9 % Sodium Chloride Mini Bag 100 ML IVPB SCH ×3 (00:18→16:45)
[2022-02-17] MEDS ORDERED: *HR* Fondaparinux 2.5 MG/0.5 ML SYRINGE SQ SCH (06:00)
[2022-02-17 08:25] LABS: Alanine Aminotransferase 9 Units/L (7-52); Albumin 2.2 g/dL (3.5-5.7); Albumin/Globulin Ratio 0.8 (1.1-2.2); Alkaline Phosphatase 46 Units/L (34-104); Aspartate Amino Transferase 12 Units/L (13-39); BUN/Creatinine Ratio 18 (6-26); Bilirubin,Total 0.4 mg/dL (0.3-1.0); Blood Urea Nitrogen 13 mg/dL (8-23); Calcium 7.5 mg/dL (8.6-10.3); Carbon Dioxide 30 mEq/L (23-29); Chloride 99 mEq/L (98-107); Globulin 2.9 g/dL (2.4-3.5); Glucose 250 mg/dL (70-105); Magnesium 1.8 mg/dL (1.6-2.6); Osmolality,Calculated 283 (280-300); Phosphorous 2.8 mg/dL (2.7-4.5); Potassium 3.5 mEq/L (3.5-5.1); Sodium 132 mEq/L (136-145); Total Protein 5.1 g/dL (6.4-8.9); eGFR For African Americans > 60 (> 60); eGFR For Non-African Americans > 60 (> 60)
[2022-02-17] MEDS: Insulin DETEMIR 100 UNIT/ML X5UNITS SUBQ SCH ×2 (09:19→20:14)
[2022-02-17] MEDS: Fluconazole 200 MG/100 ML 200 MG/100 ML BAG IVPB SCH (09:19)
[2022-02-17] MEDS: Pantoprazole 40 MG VIAL IVP SCH (09:20)
[2022-02-17] MEDS: Acetaminophen IV 1,000 MG/100 ML BAG IVPB PRN (09:21)
[2022-02-17] MEDS ORDERED: Acetaminophen IV 1,000 MG/100 ML BAG IVPB PRN (11:15)
[2022-02-17 11:47] LABS: Nucleated Red Blood Cells 1.2 /100 WBC (0)
[2022-02-17 11:49] LABS: Basophils # 0.1 K/mcL (0.0-0.2); Basophils % 0.5 %; Eosinophils # 0.1 K/mcL (0.0-0.6); Eosinophils % 0.9 %; Hematocrit 26.1 % (37.5-50.1); Hemoglobin 8.7 g/dL (12.9-16.9); Immature Granulocytes % 1.2 % (0-4); Immature Platelets 5.6 % (1.1-6.1); Lymphocytes # 2.3 K/mcL (0.6-4.6); Mean Corpuscular HGB Conc 33.3 g/dL (31.6-35.5); Mean Corpuscular Hemoglobin 31.1 pg (28.0-33.3); Mean Corpuscular Volume 93.2 fL (83.0-100.0); Mean Platelet Volume 11.6 fL (9.4-12.4); Monocytes # 1.4 K/mcL (0.0-1.3); Monocytes % 13.1 %; Platelet Count 373 K/mcL (140-400); Red Cell Distribution Width 14.1 % (11.5-14.5); Segmented Neutrophils % 62.3 %; White Blood Count 10.5 K/mcL (4.3-11.1)
[2022-02-17 12:10] LABS: Neutrophils # 6.5 K/mcL (1.6-8.9)
[2022-02-17 12:11] LABS: Hypochromasia Present (Not Present); Poikilocytosis 1+ (Not Present); Polychromasia 1+ (Not Present)
[2022-02-17 12:12] LABS: Large Platelets Present (Not Present)
[2022-02-17] MEDS: Ondansetron 4 MG/2 ML VIAL IVP PRN (16:53)
[2022-02-17] MEDS ORDERED: Clinimix E 5%-15% SOLUTION 2,000 ML IVC SCH (17:00)
[2022-02-18] MEDS: Insulin LISPRO 300 UNITS/3 ML VIAL SUBQ SCH ×6 (05:09→20:14)
[2022-02-18 05:22] LABS: Basophils # 0.1 K/mcL (0.0-0.2); Basophils % 0.5 %; Eosinophils # 0.3 K/mcL (0.0-0.6); Hematocrit 26.2 % (37.5-50.1); Hemoglobin 8.7 g/dL (12.9-16.9); Immature Granulocytes % 1.1 % (0-4); Lymphocytes # 3.1 K/mcL (0.6-4.6); Mean Corpuscular HGB Conc 33.2 g/dL (31.6-35.5); Mean Corpuscular Hemoglobin 31.4 pg (28.0-33.3); Mean Corpuscular Volume 94.6 fL (83.0-100.0); Mean Platelet Volume 11.3 fL (9.4-12.4); Monocytes # 1.7 K/mcL (0.0-1.3); Monocytes % 13.5 %; Neutrophils # 7.1 K/mcL (1.6-8.9); Nucleated Red Blood Cells 0.7 /100 WBC (0); Platelet Count 369 K/mcL (140-400); Red Blood Count 2.77 M/mcL (4.19-5.50); Red Cell Distribution Width 13.9 % (11.5-14.5); Segmented Neutrophils % 57.9 %; White Blood Count 12.3 K/mcL (4.3-11.1)
[2022-02-18 07:35] LABS: BUN/Creatinine Ratio 21 (6-26); Blood Urea Nitrogen 15 mg/dL (8-23); Calcium 7.2 mg/dL (8.6-10.3); Carbon Dioxide 28 mEq/L (23-29); Chloride 98 mEq/L (98-107); Glucose 184 mg/dL (70-105); Magnesium 1.9 mg/dL (1.6-2.6); Osmolality,Calculated 278 (280-300); Potassium 3.8 mEq/L (3.5-5.1); Sodium 131 mEq/L (136-145); eGFR For African Americans > 60 (> 60); eGFR For Non-African Americans > 60 (> 60)
[2022-02-18] MEDS: Fluconazole 200 MG/100 ML 200 MG/100 ML BAG IVPB SCH (09:25)
[2022-02-18] MEDS: Pantoprazole 40 MG VIAL IVP SCH (09:25)
[2022-02-18] MEDS: Piperacillin/Tazobactam 3.375 GM in 0.9 % Sodium Chloride Mini Bag 100 ML IVPB SCH ×3 (09:31→14:45)
[2022-02-18] MEDS: Ondansetron 4 MG/2 ML VIAL IVP PRN (09:39)
[2022-02-18] MEDS: Metoclopramide 20 MG in 0.9 % Sodium Chloride 50 ML IVPB SCH ×2 (11:00→20:45)
[2022-02-18] MEDS: Insulin DETEMIR 100 UNIT/ML X5UNITS SUBQ SCH ×2 (12:33→20:13)
[2022-02-18] MEDS: Ketorolac 30 MG/ML VIAL IVP PRN (14:46)
[2022-02-18] MEDS ORDERED: Lidocaine -MPF 1% 5 ML AMPUL INFILT ONE (15:10)
[2022-02-18] MEDS: cefTRIAXone 2,000 MG in 0.9 % Sodium Chloride 20 ML IVPB SCH (15:51)
[2022-02-18] MEDS: MetroNIDAZOLE 500 MG/100 ML 500 MG/100 ML BAG IVPB SCH (15:51)
[2022-02-18] MEDS: Vancomycin 1,500 MG/265 ML IV.SOLN IVPB SCH (15:51)
[2022-02-18] MEDS ORDERED: Clinimix E 5%-15% SOLUTION 2,000 ML with MVI, adult with vitamin K 10 ML IVC SCH (17:00)
[2022-02-19] MEDS: 0.9 % Sodium Chloride 1,000 ML IVC SCH ×4 (00:49→14:47)
[2022-02-19] MEDS: MetroNIDAZOLE 500 MG/100 ML 500 MG/100 ML BAG IVPB SCH ×4 (00:50→22:51)
[2022-02-19] MEDS: Insulin LISPRO 300 UNITS/3 ML VIAL SUBQ SCH ×7 (00:53→23:42)
[2022-02-19] MEDS: Ketorolac 30 MG/ML VIAL IVP PRN (03:40)
[2022-02-19] MEDS: Vancomycin 1,500 MG/265 ML IV.SOLN IVPB SCH ×2 (03:41→14:46)
[2022-02-19] MEDS: Metoclopramide 20 MG in 0.9 % Sodium Chloride 50 ML IVPB SCH ×2 (04:24→11:56)
[2022-02-19] MEDS: *HR* Fondaparinux 2.5 MG/0.5 ML SYRINGE SQ SCH (05:41)
[2022-02-19 06:22] LABS: Basophils # 0.1 K/mcL (0.0-0.2); Basophils % 0.5 %; Eosinophils # 0.3 K/mcL (0.0-0.6); Hematocrit 24.6 % (37.5-50.1); Hemoglobin 8.2 g/dL (12.9-16.9); Immature Granulocytes % 1.3 % (0-4); Lymphocytes # 2.7 K/mcL (0.6-4.6); Lymphocytes % 20.7 %; Mean Corpuscular HGB Conc 33.3 g/dL (31.6-35.5); Mean Corpuscular Hemoglobin 31.3 pg (28.0-33.3); Mean Corpuscular Volume 93.9 fL (83.0-100.0); Monocytes # 1.6 K/mcL (0.0-1.3); Monocytes % 12.5 %; Neutrophils # 8.3 K/mcL (1.6-8.9); Nucleated Red Blood Cells 0.5 /100 WBC (0); Platelet Count 380 K/mcL (140-400); Red Blood Count 2.62 M/mcL (4.19-5.50); Red Cell Distribution Width 13.9 % (11.5-14.5); White Blood Count 13.1 K/mcL (4.3-11.1)
[2022-02-19 06:37] LABS: Alanine Aminotransferase 9 Units/L (7-52); Albumin 2.1 g/dL (3.5-5.7); Albumin/Globulin Ratio 0.8 (1.1-2.2); Alkaline Phosphatase 47 Units/L (34-104); Aspartate Amino Transferase 14 Units/L (13-39); BUN/Creatinine Ratio 22 (6-26); Bilirubin,Total 0.4 mg/dL (0.3-1.0); Blood Urea Nitrogen 17 mg/dL (8-23); Calcium 7.3 mg/dL (8.6-10.3); Carbon Dioxide 28 mEq/L (23-29); Chloride 100 mEq/L (98-107); Globulin 2.7 g/dL (2.4-3.5); Glucose 157 mg/dL (70-105); Osmolality,Calculated 277 (280-300); Phosphorous 2.6 mg/dL (2.7-4.5); Potassium 3.8 mEq/L (3.5-5.1); Sodium 131 mEq/L (136-145); Total Protein 4.8 g/dL (6.4-8.9); eGFR For African Americans > 60 (> 60); eGFR For Non-African Americans > 60 (> 60)
[2022-02-19] MEDS ORDERED: Isovue-370 500 ML BOTTLE IVP ONE (08:16)
[2022-02-19] MEDS: cefTRIAXone 2,000 MG in 0.9 % Sodium Chloride 20 ML IVPB SCH (08:25)
[2022-02-19] MEDS: Fluconazole 200 MG/100 ML 200 MG/100 ML BAG IVPB SCH ×2 (08:27→08:29)
[2022-02-19] MEDS: Pantoprazole 40 MG VIAL IVP SCH (08:31)
[2022-02-19] MEDS: Insulin DETEMIR 100 UNIT/ML X5UNITS SUBQ SCH ×2 (08:43→20:21)
[2022-02-19] MEDS: Ondansetron 4 MG/2 ML VIAL IVP PRN ×2 (10:19→17:17)
[2022-02-19] MEDS: Chloraseptic Spray 177 ML BOTTLE MM PRN (15:23)
[2022-02-19] MEDS: Saliva Stimulant 44.3ml BOTTLE PO PRN (16:17)
[2022-02-19] MEDS ORDERED: Clinimix E 5%-15% SOLUTION 2,000 ML IVC SCH (17:00)
[2022-02-20 00:57] LABS: Basophils % 0.4 %; Eosinophils # 0.3 K/mcL (0.0-0.6); Eosinophils % 3.5 %; Hematocrit 24.8 % (37.5-50.1); Hemoglobin 8.1 g/dL (12.9-16.9); Lymphocytes # 2.3 K/mcL (0.6-4.6); Mean Corpuscular HGB Conc 32.7 g/dL (31.6-35.5); Mean Corpuscular Hemoglobin 31.2 pg (28.0-33.3); Mean Corpuscular Volume 95.4 fL (83.0-100.0); Mean Platelet Volume 11.3 fL (9.4-12.4); Monocytes # 1.2 K/mcL (0.0-1.3); Monocytes % 12.9 %; Nucleated Red Blood Cells 0.2 /100 WBC (0); Platelet Count 372 K/mcL (140-400); Red Cell Distribution Width 14.2 % (11.5-14.5); Segmented Neutrophils % 56.2 %; White Blood Count 8.9 K/mcL (4.3-11.1)
[2022-02-20 01:08] LABS: Alanine Aminotransferase 9 Units/L (7-52); Albumin 2.1 g/dL (3.5-5.7); Albumin/Globulin Ratio 0.7 (1.1-2.2); Alkaline Phosphatase 42 Units/L (34-104); Aspartate Amino Transferase 15 Units/L (13-39); BUN/Creatinine Ratio 19 (6-26); Bilirubin,Total 0.4 mg/dL (0.3-1.0); Blood Urea Nitrogen 13 mg/dL (8-23); Calcium 7.4 mg/dL (8.6-10.3); Carbon Dioxide 27 mEq/L (23-29); Chloride 102 mEq/L (98-107); Globulin 3.1 g/dL (2.4-3.5); Glucose 185 mg/dL (70-105); Osmolality,Calculated 277 (280-300); Potassium 3.8 mEq/L (3.5-5.1); Sodium 131 mEq/L (136-145); Total Protein 5.2 g/dL (6.4-8.9); eGFR For African Americans > 60 (> 60); eGFR For Non-African Americans > 60 (> 60)
[2022-02-20 01:29] LABS: Ferritin 177 ng/mL (20-250); Iron < 10 mcg/dL (65-175); Magnesium 1.9 mg/dL (1.6-2.6); Phosphorous 2.8 mg/dL (2.7-4.5); Transferrin 112 mg/dL (203-362); Triglycerides 133 mg/dL (< 150)
[2022-02-20 01:30] LABS: Folate 12.2 ng/mL (3.0-16.0)
[2022-02-20] MEDS: Vancomycin 1,500 MG/265 ML IV.SOLN IVPB SCH ×2 (03:12→14:37)
[2022-02-20] MEDS: Insulin LISPRO 300 UNITS/3 ML VIAL SUBQ SCH ×5 (04:48→23:03)
[2022-02-20] MEDS: Ondansetron 4 MG/2 ML VIAL IVP PRN ×2 (04:54→09:27)
[2022-02-20] MEDS: Ketorolac 30 MG/ML VIAL IVP PRN ×2 (04:55→11:40)
[2022-02-20] MEDS: *HR* Fondaparinux 2.5 MG/0.5 ML SYRINGE SQ SCH (04:58)
[2022-02-20] MEDS ORDERED: Iron Sucrose Complex 400 MG in 0.9 % Sodium Chloride 250 ML IVPB ONE (07:22)
[2022-02-20] MEDS: Calcium Gluconate 1gm/50mL 1 GM/50 ML BAG IVPB SCH ×2 (07:59→08:41)
[2022-02-20] MEDS: Pantoprazole 40 MG VIAL IVP SCH (08:00)
[2022-02-20] MEDS: Fluconazole 200 MG/100 ML 200 MG/100 ML BAG IVPB SCH (08:00)
[2022-02-20] MEDS: cefTRIAXone 2,000 MG in 0.9 % Sodium Chloride 20 ML IVPB SCH (08:00)
[2022-02-20] MEDS: MetroNIDAZOLE 500 MG/100 ML 500 MG/100 ML BAG IVPB SCH ×2 (08:01→17:07)
[2022-02-20] MEDS: Insulin DETEMIR 100 UNIT/ML X5UNITS SUBQ SCH ×2 (08:14→21:29)
[2022-02-20] MEDS: 0.9 % Sodium Chloride 1,000 ML IVC SCH (08:41)
[2022-02-20] MEDS ORDERED: Acetaminophen IV 1,000 MG/100 ML BAG IVPB PRN (13:58)
[2022-02-20] MEDS ORDERED: Ketorolac 30 MG/ML VIAL IVP PRN (13:58)
[2022-02-20] MEDS ORDERED: Clinimix E 5%-15% SOLUTION 2,000 ML with MVI, adult with vitamin K 10 ML IVC SCH (17:00)
[2022-02-20] MEDS: *HR* LORazepam 2 MG/ML VIAL IVP SCH (21:28)
[2022-02-20] MEDS: Artificial Tears SOLN 15 ML BOTTLE BOTH EYES SCH (23:02)
[2022-02-21] MEDS: MetroNIDAZOLE 500 MG/100 ML 500 MG/100 ML BAG IVPB SCH ×3 (00:53→16:51)
[2022-02-21] MEDS: Insulin LISPRO 300 UNITS/3 ML VIAL SUBQ SCH ×6 (00:56→21:24)
[2022-02-21 02:29] LABS: Basophils # 0.1 K/mcL (0.0-0.2); Basophils % 0.6 %; Eosinophils # 0.4 K/mcL (0.0-0.6); Eosinophils % 4.4 %; Hematocrit 24.2 % (37.5-50.1); Hemoglobin 8.1 g/dL (12.9-16.9); Immature Granulocytes % 1.4 % (0-4); Lymphocytes # 2.3 K/mcL (0.6-4.6); Lymphocytes % 26.7 %; Mean Corpuscular HGB Conc 33.5 g/dL (31.6-35.5); Mean Corpuscular Hemoglobin 31.8 pg (28.0-33.3); Mean Corpuscular Volume 94.9 fL (83.0-100.0); Mean Platelet Volume 11.3 fL (9.4-12.4); Monocytes # 1.1 K/mcL (0.0-1.3); Monocytes % 13.1 %; Neutrophils # 4.6 K/mcL (1.6-8.9); Platelet Count 356 K/mcL (140-400); Red Blood Count 2.55 M/mcL (4.19-5.50); Red Cell Distribution Width 14.8 % (11.5-14.5); Segmented Neutrophils % 53.8 %; White Blood Count 8.6 K/mcL (4.3-11.1)
[2022-02-21 02:32] LABS: Alanine Aminotransferase 11 Units/L (7-52); Albumin 2.2 g/dL (3.5-5.7); Albumin/Globulin Ratio 0.8 (1.1-2.2); Alkaline Phosphatase 43 Units/L (34-104); Aspartate Amino Transferase 17 Units/L (13-39); BUN/Creatinine Ratio 19 (6-26); Bilirubin,Total 0.3 mg/dL (0.3-1.0); Blood Urea Nitrogen 14 mg/dL (8-23); Calcium 7.4 mg/dL (8.6-10.3); Carbon Dioxide 25 mEq/L (23-29); Chloride 103 mEq/L (98-107); Globulin 2.8 g/dL (2.4-3.5); Glucose 206 mg/dL (70-105); Magnesium 1.8 mg/dL (1.6-2.6); Osmolality,Calculated 278 (280-300); Phosphorous 3.1 mg/dL (2.7-4.5); Potassium 3.8 mEq/L (3.5-5.1); Sodium 131 mEq/L (136-145); eGFR For African Americans > 60 (> 60); eGFR For Non-African Americans > 60 (> 60)
[2022-02-21] MEDS: 0.9 % Sodium Chloride 1,000 ML IVC SCH ×2 (03:20→21:23)
[2022-02-21] MEDS: Vancomycin 1,500 MG/265 ML IV.SOLN IVPB SCH ×2 (03:56→14:39)
[2022-02-21] MEDS: *HR* Fondaparinux 2.5 MG/0.5 ML SYRINGE SQ SCH (05:57)
[2022-02-21] MEDS: cefTRIAXone 2,000 MG in 0.9 % Sodium Chloride 20 ML IVPB SCH (08:36)
[2022-02-21] MEDS: Artificial Tears SOLN 15 ML BOTTLE BOTH EYES SCH ×4 (08:37→21:04)
[2022-02-21] MEDS: Pantoprazole 40 MG VIAL IVP SCH (08:37)
[2022-02-21] MEDS: Insulin DETEMIR 100 UNIT/ML X5UNITS SUBQ SCH ×2 (08:40→21:25)
[2022-02-21] MEDS ORDERED: Clinimix E 5%-15% SOLUTION 2,000 ML IVC SCH (17:00)
[2022-02-21] MEDS: *HR* LORazepam 2 MG/ML VIAL IVP SCH (21:04)
[2022-02-21] MEDS: Ondansetron 4 MG/2 ML VIAL IVP PRN (21:22)
[2022-02-22] MEDS: MetroNIDAZOLE 500 MG/100 ML 500 MG/100 ML BAG IVPB SCH ×3 (01:14→15:55)
[2022-02-22] MEDS: Insulin LISPRO 300 UNITS/3 ML VIAL SUBQ SCH ×6 (01:37→20:14)
[2022-02-22] MEDS: Vancomycin 1,500 MG/265 ML IV.SOLN IVPB SCH ×2 (03:34→17:54)
[2022-02-22] MEDS: *HR* Fondaparinux 2.5 MG/0.5 ML SYRINGE SQ SCH (06:56)
[2022-02-22 08:19] LABS: Basophils # 0.1 K/mcL (0.0-0.2); Basophils % 0.6 %; Eosinophils # 0.5 K/mcL (0.0-0.6); Eosinophils % 5.5 %; Hematocrit 24.6 % (37.5-50.1); Hemoglobin 8.1 g/dL (12.9-16.9); Immature Granulocytes % 1.2 % (0-4); Lymphocytes # 2.2 K/mcL (0.6-4.6); Lymphocytes % 26.4 %; Mean Corpuscular HGB Conc 32.9 g/dL (31.6-35.5); Mean Corpuscular Hemoglobin 31.6 pg (28.0-33.3); Mean Corpuscular Volume 96.1 fL (83.0-100.0); Mean Platelet Volume 10.6 fL (9.4-12.4); Monocytes # 1.1 K/mcL (0.0-1.3); Monocytes % 13.7 %; Neutrophils # 4.3 K/mcL (1.6-8.9); Nucleated Red Blood Cells 0.2 /100 WBC (0); Platelet Count 517 K/mcL (140-400); Red Blood Count 2.56 M/mcL (4.19-5.50); Red Cell Distribution Width 14.8 % (11.5-14.5); Segmented Neutrophils % 52.6 %; White Blood Count 8.2 K/mcL (4.3-11.1)
[2022-02-22 08:30] LABS: Magnesium 1.8 mg/dL (1.6-2.6); Phosphorous 3.7 mg/dL (2.7-4.5)
[2022-02-22 09:08] LABS: Albumin 2.3 g/dL (3.5-5.7); Albumin/Globulin Ratio 0.8 (1.1-2.2); Alkaline Phosphatase 46 Units/L (34-104); Aspartate Amino Transferase 16 Units/L (13-39); BUN/Creatinine Ratio 16 (6-26); Bilirubin,Total 0.4 mg/dL (0.3-1.0); Blood Urea Nitrogen 12 mg/dL (8-23); Calcium 7.9 mg/dL (8.6-10.3); Carbon Dioxide 27 mEq/L (23-29); Chloride 103 mEq/L (98-107); Glucose 79 mg/dL (70-105); Osmolality,Calculated 277 (280-300); Potassium 3.9 mEq/L (3.5-5.1); Sodium 134 mEq/L (136-145); Total Protein 5.3 g/dL (6.4-8.9); eGFR For African Americans > 60 (> 60); eGFR For Non-African Americans > 60 (> 60)
[2022-02-22 09:25] LABS: Alanine Aminotransferase 10 Units/L (7-52)
[2022-02-22] MEDS: Fluconazole 200 MG/100 ML 200 MG/100 ML BAG IVPB SCH (09:48)
[2022-02-22] MEDS: Artificial Tears SOLN 15 ML BOTTLE BOTH EYES SCH ×4 (09:53→20:15)
[2022-02-22] MEDS: cefTRIAXone 2,000 MG in 0.9 % Sodium Chloride 20 ML IVPB SCH (09:54)
[2022-02-22] MEDS: Insulin DETEMIR 100 UNIT/ML X5UNITS SUBQ SCH ×2 (09:57→20:19)
[2022-02-22] MEDS: Pantoprazole 40 MG VIAL IVP SCH (09:57)
[2022-02-22] MEDS: 0.9 % Sodium Chloride 1,000 ML IVC SCH (15:54)
[2022-02-22] MEDS ORDERED: Clinimix E 5%-15% SOLUTION 2,000 ML IVC SCH (17:00)
[2022-02-22] MEDS: *HR* LORazepam 2 MG/ML VIAL IVP SCH (20:15)
[2022-02-23] MEDS: MetroNIDAZOLE 500 MG/100 ML 500 MG/100 ML BAG IVPB SCH ×3 (02:11→18:18)
[2022-02-23] MEDS: 0.9 % Sodium Chloride 1,000 ML IVC SCH ×2 (02:12→18:05)
[2022-02-23 03:27] LABS: Basophils # 0.1 K/mcL (0.0-0.2); Eosinophils # 0.3 K/mcL (0.0-0.6); Hemoglobin 7.6 g/dL (12.9-16.9); Immature Granulocytes % 0.8 % (0-4); Lymphocytes # 2.1 K/mcL (0.6-4.6); Lymphocytes % 25.2 %; Mean Corpuscular HGB Conc 31.7 g/dL (31.6-35.5); Mean Platelet Volume 10.8 fL (9.4-12.4); Monocytes % 12.3 %; Neutrophils # 4.7 K/mcL (1.6-8.9); Nucleated Red Blood Cells 0.2 /100 WBC (0); Platelet Count 524 K/mcL (140-400); Red Blood Count 2.45 M/mcL (4.19-5.50); Red Cell Distribution Width 15.4 % (11.5-14.5); Segmented Neutrophils % 56.7 %; White Blood Count 8.3 K/mcL (4.3-11.1)
[2022-02-23 03:44] LABS: Alanine Aminotransferase 10 Units/L (7-52); Albumin 2.2 g/dL (3.5-5.7); Alkaline Phosphatase 55 Units/L (34-104); Aspartate Amino Transferase 20 Units/L (13-39); BUN/Creatinine Ratio 19 (6-26); Bilirubin,Total 0.3 mg/dL (0.3-1.0); Blood Urea Nitrogen 15 mg/dL (8-23); Calcium 7.6 mg/dL (8.6-10.3); Carbon Dioxide 25 mEq/L (23-29); Chloride 103 mEq/L (98-107); Glucose 262 mg/dL (70-105); Osmolality,Calculated 284 (280-300); Potassium 4.3 mEq/L (3.5-5.1); Sodium 132 mEq/L (136-145); eGFR For African Americans > 60 (> 60); eGFR For Non-African Americans > 60 (> 60)
[2022-02-23 03:45] LABS: Magnesium 1.8 mg/dL (1.6-2.6); Phosphorous 3.1 mg/dL (2.7-4.5)
[2022-02-23 03:58] LABS: Albumin/Globulin Ratio 0.7 (1.1-2.2); Total Protein 5.2 g/dL (6.4-8.9)
[2022-02-23] MEDS: *HR* Fondaparinux 2.5 MG/0.5 ML SYRINGE SQ SCH (04:30)
[2022-02-23] MEDS: Vancomycin 1,500 MG/265 ML IV.SOLN IVPB SCH ×2 (04:31→15:57)
[2022-02-23] MEDS: Insulin LISPRO 300 UNITS/3 ML VIAL SUBQ SCH ×6 (04:32→20:06)
[2022-02-23] MEDS: Pantoprazole 40 MG VIAL IVP SCH (08:35)
[2022-02-23] MEDS: Artificial Tears SOLN 15 ML BOTTLE BOTH EYES SCH ×4 (08:35→20:07)
[2022-02-23] MEDS: cefTRIAXone 2,000 MG in 0.9 % Sodium Chloride 20 ML IVPB SCH (08:36)
[2022-02-23] MEDS: Fluconazole 200 MG/100 ML 200 MG/100 ML BAG IVPB SCH (08:37)
[2022-02-23] MEDS: Insulin DETEMIR 100 UNIT/ML X5UNITS SUBQ SCH ×2 (08:39→20:07)
[2022-02-23] MEDS: Metoclopramide 10 MG/2 ML VIAL IVP SCH ×2 (11:04→18:18)
[2022-02-23] MEDS: polyethylene glycoL 3350 17 GM POWD.PACK PO SCH (11:17)
[2022-02-23] MEDS: Ketorolac 30 MG/ML VIAL IVP PRN (11:19)
[2022-02-23] MEDS: DilTIAZem CD (24hr) 300 MG CAP.ER.24H PO SCH (13:11)
[2022-02-23] MEDS ORDERED: Clinimix E 5%-15% SOLUTION 2,000 ML, Amino Acids 10% 200 ML with MVI, adult with vita... IVC SCH (17:00)
[2022-02-23] MEDS: *HR* LORazepam 2 MG/ML VIAL IVP SCH (20:07)
[2022-02-24] MEDS: Metoclopramide 10 MG/2 ML VIAL IVP SCH ×4 (00:01→18:07)
[2022-02-24] MEDS: Insulin LISPRO 300 UNITS/3 ML VIAL SUBQ SCH ×6 (00:06→20:40)
[2022-02-24] MEDS: MetroNIDAZOLE 500 MG/100 ML 500 MG/100 ML BAG IVPB SCH ×3 (01:17→18:07)
[2022-02-24] MEDS: Vancomycin 1,500 MG/265 ML IV.SOLN IVPB SCH ×2 (03:41→15:05)
[2022-02-24 05:03] LABS: Basophils # 0.1 K/mcL (0.0-0.2); Eosinophils # 0.2 K/mcL (0.0-0.6); Hematocrit 23.1 % (37.5-50.1); Hemoglobin 7.5 g/dL (12.9-16.9); Lymphocytes # 1.9 K/mcL (0.6-4.6); Lymphocytes % 23.3 %; Mean Corpuscular HGB Conc 32.5 g/dL (31.6-35.5); Mean Corpuscular Hemoglobin 32.3 pg (28.0-33.3); Mean Corpuscular Volume 99.6 fL (83.0-100.0); Mean Platelet Volume 10.7 fL (9.4-12.4); Monocytes % 12.9 %; Neutrophils # 4.8 K/mcL (1.6-8.9); Platelet Count 525 K/mcL (140-400); Red Blood Count 2.32 M/mcL (4.19-5.50); Red Cell Distribution Width 16.2 % (11.5-14.5); Segmented Neutrophils % 58.8 %; White Blood Count 8.1 K/mcL (4.3-11.1)
[2022-02-24 05:22] LABS: Magnesium 1.8 mg/dL (1.6-2.6); Phosphorous 2.9 mg/dL (2.7-4.5)
[2022-02-24 05:23] LABS: Alanine Aminotransferase 10 Units/L (7-52); Albumin 2.2 g/dL (3.5-5.7); Albumin/Globulin Ratio 0.7 (1.1-2.2); Alkaline Phosphatase 47 Units/L (34-104); Aspartate Amino Transferase 15 Units/L (13-39); BUN/Creatinine Ratio 21 (6-26); Bilirubin,Total 0.3 mg/dL (0.3-1.0); Blood Urea Nitrogen 15 mg/dL (8-23); Calcium 7.4 mg/dL (8.6-10.3); Carbon Dioxide 26 mEq/L (23-29); Chloride 100 mEq/L (98-107); Glucose 255 mg/dL (70-105); Osmolality,Calculated 276 (280-300); Potassium 4.4 mEq/L (3.5-5.1); Sodium 128 mEq/L (136-145); Total Protein 5.2 g/dL (6.4-8.9); eGFR For African Americans > 60 (> 60); eGFR For Non-African Americans > 60 (> 60)
[2022-02-24] MEDS: Ketorolac 30 MG/ML VIAL IVP PRN (05:24)
[2022-02-24] MEDS: *HR* Fondaparinux 2.5 MG/0.5 ML SYRINGE SQ SCH (05:26)
[2022-02-24] MEDS: cefTRIAXone 2,000 MG in 0.9 % Sodium Chloride 20 ML IVPB SCH (07:51)
[2022-02-24] MEDS: Artificial Tears SOLN 15 ML BOTTLE BOTH EYES SCH ×4 (07:51→20:42)
[2022-02-24] MEDS: DilTIAZem CD (24hr) 300 MG CAP.ER.24H PO SCH (07:52)
[2022-02-24] MEDS: Fluconazole 200 MG/100 ML 200 MG/100 ML BAG IVPB SCH (07:52)
[2022-02-24] MEDS: Pantoprazole 40 MG VIAL IVP SCH (07:52)
[2022-02-24] MEDS: polyethylene glycoL 3350 17 GM POWD.PACK PO SCH (07:53)
[2022-02-24] MEDS: Insulin DETEMIR 100 UNIT/ML X5UNITS SUBQ SCH ×2 (07:54→20:42)
[2022-02-24] MEDS ORDERED: Losartan/HCTZ 50-12.5 TABLET PO SCH (09:00)
[2022-02-24] MEDS: 0.9 % Sodium Chloride 1,000 ML IVC SCH (11:36)
[2022-02-24] MEDS ORDERED: Acetaminophen IV 1,000 MG/100 ML BAG IVPB PRN (15:25)
[2022-02-24] MEDS: Clinimix E 5%-15% SOLUTION 2,000 ML IVC SCH (16:45)
[2022-02-24] MEDS: traZODone 50 MG TABLET PO SCH (20:39)
[2022-02-24] MEDS: *HR* LORazepam 2 MG/ML VIAL IVP SCH (20:41)
[2022-02-24] MEDS: Gabapentin 300 MG CAPSULE PO SCH (20:41)
[2022-02-24] MEDS: Melatonin 3 MG TABLET PO SCH (20:42)
[2022-02-25] MEDS: Insulin LISPRO 300 UNITS/3 ML VIAL SUBQ SCH ×7 (00:02→23:45)
[2022-02-25] MEDS: Metoclopramide 10 MG/2 ML VIAL IVP SCH ×5 (00:03→23:45)
[2022-02-25] MEDS: MetroNIDAZOLE 500 MG/100 ML 500 MG/100 ML BAG IVPB SCH ×2 (02:55→10:17)
[2022-02-25] MEDS: Vancomycin 1,500 MG/265 ML IV.SOLN IVPB SCH ×2 (04:09→14:24)
[2022-02-25] MEDS: *HR* Fondaparinux 2.5 MG/0.5 ML SYRINGE SQ SCH (05:09)
[2022-02-25 05:35] LABS: Alanine Aminotransferase 9 Units/L (7-52); Albumin 2.1 g/dL (3.5-5.7); Albumin/Globulin Ratio 0.7 (1.1-2.2); Alkaline Phosphatase 44 Units/L (34-104); Aspartate Amino Transferase 13 Units/L (13-39); BUN/Creatinine Ratio 16 (6-26); Bilirubin,Total 0.3 mg/dL (0.3-1.0); Blood Urea Nitrogen 12 mg/dL (8-23); Calcium 7.7 mg/dL (8.6-10.3); Carbon Dioxide 26 mEq/L (23-29); Chloride 105 mEq/L (98-107); Glucose 161 mg/dL (70-105); Magnesium 1.8 mg/dL (1.6-2.6); Osmolality,Calculated 283 (280-300); Phosphorous 3.1 mg/dL (2.7-4.5); Potassium 4.1 mEq/L (3.5-5.1); Sodium 135 mEq/L (136-145); Total Protein 5.1 g/dL (6.4-8.9); eGFR For African Americans > 60 (> 60); eGFR For Non-African Americans > 60 (> 60)
[2022-02-25] MEDS: polyethylene glycoL 3350 17 GM POWD.PACK PO SCH (08:11)
[2022-02-25] MEDS: cefTRIAXone 2,000 MG in 0.9 % Sodium Chloride 20 ML IVPB SCH (08:12)
[2022-02-25] MEDS: Insulin DETEMIR 100 UNIT/ML X5UNITS SUBQ SCH ×2 (08:12→20:38)
[2022-02-25] MEDS: DilTIAZem CD (24hr) 300 MG CAP.ER.24H PO SCH (08:12)
[2022-02-25] MEDS: Artificial Tears SOLN 15 ML BOTTLE BOTH EYES SCH ×4 (08:13→20:36)
[2022-02-25] MEDS: Gabapentin 300 MG CAPSULE PO SCH ×3 (08:16→20:37)
[2022-02-25] MEDS ORDERED: Acetaminophen 325 MG TABLET PO PRN (11:42)
[2022-02-25] MEDS: Ondansetron 4 MG/2 ML VIAL IVP PRN (14:20)
[2022-02-25] MEDS: metroNIDAZOLE 500 MG TABLET PO SCH ×2 (14:26→20:37)
[2022-02-25] MEDS: Clinimix E 5%-15% SOLUTION 2,000 ML IVC SCH (16:43)
[2022-02-25] MEDS: traZODone 50 MG TABLET PO SCH (20:37)
[2022-02-25] MEDS: Melatonin 3 MG TABLET PO SCH (20:37)
[2022-02-25] MEDS: *HR* LORazepam 2 MG/ML VIAL IVP SCH (20:38)
[2022-02-26] MEDS: Vancomycin 1,500 MG/265 ML IV.SOLN IVPB SCH ×2 (02:21→15:12)
[2022-02-26] MEDS: *HR* Dextrose 50 % in Water (Syg) 50 ML SYRINGE IVP PRN (05:00)
[2022-02-26] MEDS: Insulin LISPRO 300 UNITS/3 ML VIAL SUBQ SCH ×5 (05:04→20:24)
[2022-02-26] MEDS: *HR* Fondaparinux 2.5 MG/0.5 ML SYRINGE SQ SCH (05:07)
[2022-02-26] MEDS: Metoclopramide 10 MG/2 ML VIAL IVP SCH ×3 (05:07→16:25)
[2022-02-26] MEDS: DilTIAZem CD (24hr) 300 MG CAP.ER.24H PO SCH (08:50)
[2022-02-26] MEDS: cefTRIAXone 2,000 MG in 0.9 % Sodium Chloride 20 ML IVPB SCH (08:50)
[2022-02-26] MEDS: Gabapentin 300 MG CAPSULE PO SCH ×3 (08:50→20:25)
[2022-02-26] MEDS: metroNIDAZOLE 500 MG TABLET PO SCH ×3 (08:50→20:24)
[2022-02-26] MEDS: polyethylene glycoL 3350 17 GM POWD.PACK PO SCH (08:51)
[2022-02-26] MEDS: Insulin DETEMIR 100 UNIT/ML X5UNITS SUBQ SCH (09:05)
[2022-02-26] MEDS: Artificial Tears SOLN 15 ML BOTTLE BOTH EYES SCH ×3 (11:49→20:24)
[2022-02-26] MEDS ORDERED: *HR* LORazepam 2 MG/ML VIAL IVP PRN (14:19)
[2022-02-26] MEDS: traZODone 50 MG TABLET PO SCH (20:24)
[2022-02-26] MEDS: Melatonin 3 MG TABLET PO SCH (20:25)
[2022-02-26] MEDS ORDERED: Insulin DETEMIR 100 UNIT/ML X5UNITS SUBQ SCH (21:00)
[2022-02-27] MEDS: Insulin LISPRO 300 UNITS/3 ML VIAL SUBQ SCH ×4 (00:12→11:31)
[2022-02-27] MEDS: Metoclopramide 10 MG/2 ML VIAL IVP SCH ×4 (00:15→17:07)
[2022-02-27] MEDS: Vancomycin 1,500 MG/265 ML IV.SOLN IVPB SCH ×2 (03:22→15:30)
[2022-02-27] MEDS: *HR* Dextrose 50 % in Water (Syg) 50 ML SYRINGE IVP PRN (04:35)
[2022-02-27] MEDS: *HR* Fondaparinux 2.5 MG/0.5 ML SYRINGE SQ SCH (06:01)
[2022-02-27] MEDS ORDERED: Ondansetron ODT 4 MG TAB.RAPDIS SL PRN (07:30)
[2022-02-27] MEDS ORDERED: methocarbamoL 500 MG TABLET PO PRN (07:30)
[2022-02-27] MEDS ORDERED: Lactobacillus 1 EACH CAP.SPRINK PO SCH (09:00)
[2022-02-27] MEDS ORDERED: Fluticasone Propionate Nasal 50 MCG/SPRAY BOTTLE NS SCH (09:00)
[2022-02-27] MEDS: Artificial Tears SOLN 15 ML BOTTLE BOTH EYES SCH ×3 (09:55→17:07)
[2022-02-27] MEDS: cefTRIAXone 2,000 MG in 0.9 % Sodium Chloride 20 ML IVPB SCH (09:57)
[2022-02-27] MEDS: DilTIAZem CD (24hr) 300 MG CAP.ER.24H PO SCH (10:09)
[2022-02-27] MEDS: metroNIDAZOLE 500 MG TABLET PO SCH ×2 (10:10→15:23)
[2022-02-27] MEDS: polyethylene glycoL 3350 17 GM POWD.PACK PO SCH (10:10)
[2022-02-27] MEDS: Gabapentin 300 MG CAPSULE PO SCH (10:10)
[2022-02-27 11:26] VITALS: BP 146/72; TEMP 98.1
[2022-02-27] MEDS ORDERED: Gabapentin 400 MG CAPSULE PO SCH (15:00)
[2022-02-27] MEDS ORDERED: Insulin LISPRO 300 UNITS/3 ML VIAL SUBQ SCH (16:30)
[2022-02-27 17:18] VITALS: PULSE 85; O2SAT 96
[2022-02-27] MEDS ORDERED: Insulin DETEMIR 100 UNIT/ML X5UNITS SUBQ SCH (21:00)
== END 2022-02-27 19:51 | disposition home or self-care (01) | DRG 329 ==
LOC: 3ANU 13:05 → EMEROOARM 13:05 → SUATTDRO 16:18 → 3ANU 17:07 → SUATTDRO 02-13 13:40 → 2NNU 02-13 19:27 → 2NENU 02-19 14:08
PROVIDERS: ADMIT Internal Medicine; ATTEND Internal Medicine
PROC: GENLINE (2022-02-13 17:30)